=== PATIENT | male | born 1995 ===

== ENCOUNTER 2021-02-02 23:40 | Emergency (ER) | payer OTHER ==
[2021-02-03 01:20] VITALS: BP 130/97; PULSE 83; RESP 18; TEMP 97.9
--- NOTE | 2021-02-03 01:35 | ED ---
General Adult HPI - General Chief complaint: Recheck/Abnormal Lab/Rx Stated complaint: Covid Test Source: patient Mode of arrival: ambulatory Limitations: no limitations - History of Present Illness Initial comments: Patient here for covid test, refused medical examination - Related Data Allergies Allergy/AdvReac Type Severity Reaction Status Date / Time No Known Allergies Allergy Verified 02/02/21 23:48 Review of Systems ROS Statement: Those systems with pertinent positive or pertinent negative responses have been documented in the HPI. ROS Other: All systems not noted in ROS Statement are negative. Past Medical History Past Medical History: No Reported History History of Any Multi-Drug Resistant Organisms: None Reported Past Surgical History: No Surgical Hx Reported Past Psychological History: No Psychological Hx Reported Smoking Status: Never smoker Past Alcohol Use History: Occasional Past Drug Use History: None Reported General Exam Limitations: no limitations Course Vital Signs 02/02/21 02/03/21 23:45 01:18 Temperature 98.2 F 97.9 F Pulse Rate 82 83 Respiratory 16 18 Rate Blood Pressure 138/87 130/97 O2 Sat by Pulse 99 100 Oximetry Medical Decision Making - Lab Data Lab Results 02/03/21 Range/Units 00:01 Coronavirus (PCR) Not Detected (Not Detectd) Disposition Clinical Impression: Lab test negative for COVID-19 virus Disposition: HOME SELF-CARE Is patient prescribed a controlled substance at d/c from ED?: No Referrals: None,Stated [Primary Care Provider] - 1-2 days Time of Disposition: 01:35
== END 2021-02-03 01:43 | disposition home or self-care (01) ==
LOC: EC 23:40
DX: Z20.822 Contact with and (suspected) exposure to COVID-19 (principal)
CPT/HCPCS: 87635; 99282